=== PATIENT | male | born 1940 | race Caucasian/White ===

== ENCOUNTER 2016-12-10 11:16 | Observation (INO) | payer OTHER ==
--- NOTE | 2016-12-10 12:22 | EDPHY ---
HPI/HX/ROS/PE/MDM Narrative: CHIEF COMPLAINT: Shoulder pain, Knee pain, Back pain. HISTORY OF PRESENT ILLNESS: The patient is a 76-year-old male, brought in by EMS , presenting with posterior left chest pain, left shoulder pain, and right knee pain after falling 5 feet into a window well. patient reports he removed move the cover on his window well next to his house. He then was speaking to his and was distracted and stumbled into the window well, rolling into the window.He did not lose consciousness. He reports Significant pain on the posterior left chest. Worse with inspiration. Worse with movement. Also reports moderate pain to his knee and shoulder. He denies lower extremity weakness or numbness. The patient takes 81mg Aspirin daily. REVIEW OF SYSTEMS: Aside from elements discussed in the HPI, a comprehensive 10-point review of systems was reviewed and is negative. PAST MEDICAL HISTORY: Asthma, on supplemental O2 at night. SOCIAL HISTORY: , lives with at home. VITAL SIGNS: Reviewed by me GENERAL: Well-developed, well-nourished, Reports pain with inspiration. HEENT: Small abrasion to the top of head. Eyes: No icterus, no injection. Mouth: moist mucous membranes. No erythema or lesions. Neck: supple with no adenopathy. LUNGS: BS diminished throughout. Crepitus is noted over the left posterior lower chest. No wheezes, rhonchi or rales. CARDIAC: Regular rate and rhythm, no rubs, murmurs or gallops. ABDOMEN: Soft, nontender, nondistended, bowel sounds normal. BACK: Abrasion across lower chest posteriorly with crepitus. Bruising and tenderness over lower ribs. Large ecchymosis and hematoma over lower left ribs / left flank area. EXTREMITIES: Right knee: Abrasion over patella. No deformity, good range of motion, palpable tenderness along the medial and lateral joint line, moderate swelling. No tibial plateau tenderness. Abrasion to left humerus. Pain with ROM at left shoulder, no tenderness to palpation. No obvious deformity. NEURO: Alert and oriented, grossly nonfocal. SKIN: Warm and dry, no rash. PSYCHIATRIC: Normal mentation, no agitation. Portions of this note were transcribed by a medical office administrator. I personally performed a history, physical exam, medical decision making, and confirmed accuracy of information the transcribed note. ED Course: Patient presents with shoulder pain, knee pain, and back pain after falling 5 feet into a window well. X-ray imaging ordered. Patient received IV Dilaudid for pain. After receiving the medication the patient became diaphoretic , nauseous, pale, and his pressure decreased to 80s systolically. At that time a fast exam was performed: Limited abdominal ultrasound for blunt abdominal trauma. 1) The right upper quadrant was visualized and was found to be negative for intraperitoneal fluid. Large right renal cyst is noted. 2) The left upper quadrant was visualized and found to be negative for intraperitoneal fluid. Limited pelvic ultrasound was conducted for abdominal trauma. The bladder was visualized and did not reveal an anechoic area outside of the adjacent urinary bladder. Bladder was distended with urine. The study was felt to be negative for free intraperitoneal fluid. The procedure was performed by myself, Dr. Bunn. Shoulder x-ray is negative for fracture. Knee x-ray is negative for acute findings. Lab work is otherwise unremarkable. I discussed chest CT with the radiologist. Patient has multiple rib fractures. No pneumothorax. Manubrium appears ratty. There is a subsequent renal cyst found that is greater than 8mm. I discussed the CT findings with the patient and his family. Patient will be admitted to the hospital for ongoing pain control as well as pulmonary support. He was hypoxic on arrival and required 4 L O2 by nasal cannula on initial evaluation. Patient is quite sensitive to narcotic medications. He received Toradol. Patient's course discussed with Dr. Timur Leigh. Patient be admitted to [facility] for ongoing evaluation. MDM: Differential diagnosis for this patient's fall was considered including but not limited to intracranial injury, spinal injury, solid organ injury, pulmonary injury, rib fractures, fractures, contusion, abrasion, intra-abdominal hemorrhage. - Data Points Imaging Results: Imaging Impressions Abdomen CT 12/10/16 12:27 Impression: 1. Nondisplaced posterior left ninth rib fracture with comminuted mildly displaced posterior left tenth and eleventh rib fractures. 2. Small left pleural effusion with basilar groundglass opacities, left greater the right, possibly related to contusion, atelectasis, or less likely asymmetric pulmonary edema. 3. Nonobstructing nephrolithiasis with multiple bladder calcifications. 4. Manubrial lucencies, of uncertain clinical significance. These can be seen with metastasis or myeloma, but are nonspecific. 5. Additional findings as above. Findings discussed with Dr. Riana Bunn, on December 10, [address] 12/10/16 12:27 Impression: 1. Nondisplaced posterior left ninth rib fracture with comminuted mildly displaced posterior left tenth and eleventh rib fractures. 2. Small left pleural effusion with basilar groundglass opacities, left greater the right, possibly related to contusion, atelectasis, or less likely asymmetric pulmonary edema. 3. Nonobstructing nephrolithiasis with multiple bladder calcifications. 4. Manubrial lucencies, of uncertain clinical significance. These can be seen with metastasis or myeloma, but are nonspecific. 5. Additional findings as above. Findings discussed with Dr. Riana Bunn, on December 10, 2016 at [address] 12/10/16 12:27 Impression: 1. No acute intracranial findings. 2. Diffuse cerebral atrophy with periventricular and subcortical low attenuation consistent with chronic microvascular ischemic gliosis. Findings discussed with Dr. Riana Bunn, on December 10, 2016 at 1422 hours. Knee X-Ray 12/10/16 12:28 Impression: 1. No definite acute osseous findings. 2. Joint effusion with probable loose bodies. 3. Severe medial patellofemoral osteoarthritis.. Shoulder X-Ray 12/10/16 12:28 Impression: Degenerative change with no acute findings. Imaging: Discussed imaging studies w/ call center receptionist Radiologist, I viewed and interpreted images myself Laboratory Results: Laboratory Results 12/10/16 12:40 12/10/16 12:40 12/10/16 12/10/16 12/10/16 13:08 12:40 12:40 WBC 8.38 10^3/uL 10^3/uL (3.80-9.50) RBC 4.42 10^6/uL 10^6/uL (4.40-6.38) Hgb 14.6 g/dL g/dL (13.7-17.5) POC Hgb 12.9 gm/dL L gm/dL (13.7-17.5) Hct 42.3 % % (40.0-51.0) POC Hct 38 % L % (40-51) MCV 95.7 fL fL (81.5-99.8) MCH 33.0 pg pg (27.9-34.1) MCHC 34.5 g/dL g/dL (32.4-36.7) RDW 14.9 % % (11.5-15.2) Plt Count 113 10^3/uL L 10^3/uL (150-400) MPV 10.9 fL fL (8.7-11.7) Neut % (Auto) 78.7 % H % (39.3-74.2) Lymph % (Auto) 11.1 % L % (15.0-45.0) [place] % (Auto) 8.1 % % (4.5-13.0) Eos % (Auto) 1.0 % % (0.6-7.6) Baso % (Auto) 0.5 % % (0.3-1.7) Nucleat RBC Rel Count 0.0 % % (0.0-0.2) Absolute Neuts (auto) 6.60 10^3/uL H 10^3/uL (1.70-6.50) Absolute Lymphs (auto) 0.93 10^3/uL L 10^3/uL (1.00-3.00) Absolute Monos (auto) 0.68 10^3/uL 10^3/uL (0.30-0.80) Absolute Eos (auto) 0.08 10^3/uL 10^3/uL (0.03-0.40) Absolute Basos (auto) 0.04 10^3/uL 10^3/uL (0.02-0.10) Absolute Nucleated RBC 0.00 10^3/uL 10^3/uL (0-0.01) Immature Gran % 0.6 % % (0.0-1.1) Immature Gran # 0.05 10^3/uL 10^3/uL (0.00-0.10) POC Sodium 142 mEq/L mEq/L (134-144) Sodium 140 mEq/L mEq/L (134-144) POC Potassium 4.3 mEq/L mEq/L (3.3-5.0) Potassium 4.6 mEq/L mEq/L (3.5-5.2) POC Chloride 108 mEq/L mEq/L (97-110) Chloride 107 mEq/L mEq/L (97-110) Carbon Dioxide 24 mEq/l mEq/l (22-31) Anion Gap 9 mEq/L mEq/L (8-16) POC BUN 26 mg/dL H mg/dL (7-23) BUN 26 mg/dL H mg/dL (7-23) Creatinine 1.2 mg/dL mg/dL (0.7-1.3) POC Creatinine 1.2 mg/dL mg/dL (0.7-1.3) Estimated GFR 59 Glucose 93 mg/dL mg/dL (70-100) POC Glucose 101 mg/dL H mg/dL (70-100) Calcium 9.2 mg/dL mg/dL (8.5-10.4) Medications Given: Discontinued Medications Hydromorphone HCl (Dilaudid) 1 mg IVP EDNOW ONE Stop: 12/10/16 12:28 Last Admin: 12/10/16 12:43 Dose: 1 mg Sodium Chloride (Ns) 1,000 mls @ 0 mls/hr IV ONCE ONE PRN Reason: Wide Open Stop: 12/10/16 13:11 Last Admin: 12/10/16 13:12 Dose: 1,000 mls Ketorolac Tromethamine (Toradol) 30 mg IVP EDNOW ONE Stop: 12/10/16 14:55 Last Admin: 12/10/16 15:12 Dose: 30 mg Point of Care Test Results: 12/10/16 13:08 POC Sodium 142 POC Potassium 4.3 POC Chloride 108 POC BUN 26 H POC Creatinine 1.2 POC Glucose 101 H General Time Seen by Provider: 12/10/16 12:01 Initial Vital Signs: Initial Vital Signs Temperature (C) 36.6 C 12/10/16 11:20 Heart Rate 93 12/10/16 11:20 Respiratory Rate 14 12/10/16 11:20 Blood Pressure 90/59 L 12/10/16 11:20 O2 Sat (%) 87 L 12/10/16 11:20 O2 Delivery Mode Nasal Cannula O2 (L/minute) 2 Allergies/Adverse Reactions: No Known Allergies Allergy (Unverified 10/15/09 00:23) Home Medications: Medication Instructions Recorded Ambien 10/15/09 Aspirin 81mg 10/15/09 Simvastatin 10/15/09 Xalatan 10/15/09 Departure - Departure Disposition: [facility] Clinical Impression: Abrasion Multiple rib fractures Qualifiers: Encounter type: initial encounter Fracture type: closed Laterality: left Qualified Code(s): S22.42XA - Multiple fractures of ribs, left side, initial encounter for closed fracture Knee sprain Qualifiers: Encounter type: initial encounter Involved ligament of knee: unspecified ligament Laterality: right Qualified Code(s): S83.91XA - Sprain of unspecified site of right knee, initial encounter Condition: Good Report Scribed for: Riana Bunn Report Scribed by: Heidi Ramos Date of Report: 12/10/16 Time of Report: 12:24
[2016-12-10] MEDS ORDERED: HYDROmorphONE/DILAUDID 1 MG/ML SYR IVP ONE (12:27)
[2016-12-10] MEDS ORDERED: IOPAMIDOL (ISOVUE-300) 100 ML BTL ONE (12:55)
[2016-12-10 12:59] LABS: % IMMATURE GRANULYOCYTES 0.6 % (0.0-1.1); ABSOLUTE IMMATURE GRANULOCYTES 0.05 10^3/uL (0.00-0.10); ADD DIFF? NO; ADD MORPH? NO; ADD SCAN? NO; ATYPICAL LYMPHOCYTE FLAG 20 (0-99); FRAGMENT RBC FLAG 0 (0-99); HEMATOCRIT 42.3 % (40.0-51.0); HEMOGLOBIN 14.6 g/dL (13.7-17.5); LEFT SHIFT FLG 0 (0-99); LIPEMIA HEMOLYSIS FLAG 90 (0-99); MEAN CELL HEMOGLOBIN CONCENTR. 34.5 g/dL (32.4-36.7); MEAN CELL VOLUME 95.7 fL (81.5-99.8); MEAN PLATELET VOLUME 10.9 fL (8.7-11.7); PLATELET CLUMPS FLAG 10 (0-99); PLATELET COUNT 113 10^3/uL (150-400); RED BLOOD CELL COUNT 4.42 10^6/uL (4.40-6.38); RED CELL DISTRIBUTION WIDTH 14.9 % (11.5-15.2)
[2016-12-10] MEDS ORDERED: NS 1,000 ML IV ONE (13:10)
[2016-12-10 13:13] LABS: ANION GAP 9 mEq/L (8-16); CALCIUM 9.2 mg/dL (8.5-10.4); CARBON DIOXIDE 24 mEq/l (22-31); CHLORIDE 107 mEq/L (97-110); CREATININE 1.2 mg/dL (0.7-1.3); GLOMERULAR FILTRATION RATE 59; GLUCOSE 93 mg/dL (70-100); POTASSIUM 4.6 mEq/L (3.5-5.2); SODIUM 140 mEq/L (134-144)
[2016-12-10] MEDS ORDERED: KETOROLAC 30 MG/1 ML SDV IVP ONE (14:54)
[2016-12-10] MEDS ORDERED: ONDANSETRON 4 MG/2 ML VIAL IVP PRN (16:23)
--- NOTE | 2016-12-10 16:30 | PDGENHP ---
History and Physical - Chief Complaint Mechanical fall - History of Present Illness This is a 76-year-old gentleman who fell into a window well. The patient denies any loss of consciousness chest pain prior to the problem or syncope. He was working on his home took off the window well to do some repairs and simply forgot that was off. The patient did not want to come in was brought in by his . He is knee and left shoulder pain otherwise no complaints. History Information - Allergies/Home Medication List Allergies/Adverse Reactions: No Known Allergies Allergy (Unverified 10/15/09 00:23) Home Medications: Ambien 10/15/09 [Last Taken Unknown] Aspirin 81mg 10/15/09 [Last Taken Unknown] Simvastatin 10/15/09 [Last Taken Unknown] Xalatan 10/15/09 [Last Taken Unknown] I have personally reviewed and updated: family history, medical history, social history, surgical history - Past Medical History asthma, coronary artery disease (He has several coronary stents), GERD - Surgical History Reports: coronary stent - Family History Positive for: non-pertinent - Social History Smoking Status: Never smoked Review of Systems ROS: 10pt was reviewed & negative except for what was stated in HPI & below Cardiac: Denies: chest pain, irregular heart rate, syncope Respiratory: Reports: other (Several month history of viral pneumonia). Denies : shortness of breath Neurological: Denies: seizure, weakness Physical Exam Temp Pulse Resp BP Pulse Ox 36.7 C 81 16 114/76 98 12/10/16 16:17 12/10/16 16:17 12/10/16 16:17 12/10/16 16:17 12/10/16 16:17 O2 (L/minute) 2 Constitutional: no apparent distress Eyes: PERRL, anicteric sclera, EOMI Ears, Nose, Mouth, Throat: moist mucous membranes, ears appear normal Cardiovascular: regular rate and rhythym, no murmur, rub, or gallop, No JVD Peripheral Pulses: 2+: carotid (R), carotid (L), femoral (R), femoral (L), dorsalis-pedis (R), dorsalis-pedis (L) Respiratory: no rales or rhonchi, clear to auscultation Gastrointestinal: soft, non-tender abdomen, no palpable masses, No hepatosplenomegally, No guarding Genitourinary: No no bladder fullness Skin: warm, normal color, No abrasion, No rash Musculoskeletal: full muscle strength, normal joint ROM Neurologic: AAOx3, sensation intact bilaterally, CN II-XII Intact Psychiatric: interacting appropriately, not anxious, thought process linear Lymph, Heme, Immunologic: no cervical LAD, no supraclavicular LAD Lab Data & Imaging Review 12/10/16 12:40 12/10/16 12:40 WBC 8.38 10^3/uL (3.80-9.50) 12/10/16 12:40 RBC 4.42 10^6/uL (4.40-6.38) 12/10/16 12:40 Hgb 14.6 g/dL (13.7-17.5) 12/10/16 12:40 POC Hgb 12.9 gm/dL (13.7-17.5) L 12/10/16 13:08 Hct 42.3 % (40.0-51.0) 12/10/16 12:40 POC Hct 38 % (40-51) L 12/10/16 13:08 MCV 95.7 fL (81.5-99.8) 12/10/16 12:40 MCH 33.0 pg (27.9-34.1) 12/10/16 12:40 MCHC 34.5 g/dL (32.4-36.7) 12/10/16 12:40 RDW 14.9 % (11.5-15.2) 12/10/16 12:40 Plt Count 113 10^3/uL (150-400) L 12/10/16 12:40 MPV 10.9 fL (8.7-11.7) 12/10/16 12:40 Neut % (Auto) 78.7 % (39.3-74.2) H 12/10/16 12:40 Lymph % (Auto) 11.1 % (15.0-45.0) L 12/10/16 12:40 [place] % (Auto) 8.1 % (4.5-13.0) 12/10/16 12:40 Eos % (Auto) 1.0 % (0.6-7.6) 12/10/16 12:40 Baso % (Auto) 0.5 % (0.3-1.7) 12/10/16 12:40 Nucleat RBC Rel Count 0.0 % (0.0-0.2) 12/10/16 12:40 Absolute Neuts (auto) 6.60 10^3/uL (1.70-6.50) H 12/10/16 12:40 Absolute Lymphs (auto) 0.93 10^3/uL (1.00-3.00) L 12/10/16 12:40 Absolute Monos (auto) 0.68 10^3/uL (0.30-0.80) 12/10/16 12:40 Absolute Eos (auto) 0.08 10^3/uL (0.03-0.40) 12/10/16 12:40 Absolute Basos (auto) 0.04 10^3/uL (0.02-0.10) 12/10/16 12:40 Absolute Nucleated RBC 0.00 10^3/uL (0-0.01) 12/10/16 12:40 Immature Gran % 0.6 % (0.0-1.1) 12/10/16 12:40 Immature Gran # 0.05 10^3/uL (0.00-0.10) 12/10/16 12:40 POC Sodium 142 mEq/L (134-144) 12/10/16 13:08 Sodium 140 mEq/L (134-144) 12/10/16 12:40 POC Potassium 4.3 mEq/L (3.3-5.0) 12/10/16 13:08 Potassium 4.6 mEq/L (3.5-5.2) 12/10/16 12:40 POC Chloride 108 mEq/L (97-110) 12/10/16 13:08 Chloride 107 mEq/L (97-110) 12/10/16 12:40 Carbon Dioxide 24 mEq/l (22-31) 12/10/16 12:40 Anion Gap 9 mEq/L (8-16) 12/10/16 12:40 POC BUN 26 mg/dL (7-23) H 12/10/16 13:08 BUN 26 mg/dL (7-23) H 12/10/16 12:40 Creatinine 1.2 mg/dL (0.7-1.3) 12/10/16 12:40 POC Creatinine 1.2 mg/dL (0.7-1.3) 12/10/16 13:08 Estimated GFR 59 12/10/16 12:40 Glucose 93 mg/dL (70-100) 12/10/16 12:40 POC Glucose 101 mg/dL (70-100) H 12/10/16 13:08 Calcium 9.2 mg/dL (8.5-10.4) 12/10/16 12:40 Imaging Review: Imaging Impressions Abdomen CT 12/10/16 12:27 Impression: 1. Nondisplaced posterior left ninth rib fracture with comminuted mildly displaced posterior left tenth and eleventh rib fractures. 2. Small left pleural effusion with basilar groundglass opacities, left greater the right, possibly related to contusion, atelectasis, or less likely asymmetric pulmonary edema. 3. Nonobstructing nephrolithiasis with multiple bladder calcifications. 4. Manubrial lucencies, of uncertain clinical significance. These can be seen with metastasis or myeloma, but are nonspecific. 5. Additional findings as above. Findings discussed with Dr. Riana Bunn, on December 10, 2016 [address] 12/10/16 12:27 Impression: 1. Nondisplaced posterior left ninth rib fracture with comminuted mildly displaced posterior left tenth and eleventh rib fractures. 2. Small left pleural effusion with basilar groundglass opacities, left greater the right, possibly related to contusion, atelectasis, or less likely asymmetric pulmonary edema. 3. Nonobstructing nephrolithiasis with multiple bladder calcifications. 4. Manubrial lucencies, of uncertain clinical significance. These can be seen with metastasis or myeloma, but are nonspecific. 5. Additional findings as above. Findings discussed with Dr. Riana Bunn, on December 10, 2016 at [address] 12/10/16 12:27 Impression: 1. No acute intracranial findings. 2. Diffuse cerebral atrophy with periventricular and subcortical low attenuation consistent with chronic microvascular ischemic gliosis. Findings discussed with Dr. Riana Bunn, on December 10, 2016 at 1422 hours. Knee X-Ray 12/10/16 12:28 Impression: 1. No definite acute osseous findings. 2. Joint effusion with probable loose bodies. 3. Severe medial patellofemoral osteoarthritis.. Shoulder X-Ray 12/10/16 12:28 Impression: Degenerative change with no acute findings. Visualized and Interpreted imaging results: Yes Assessment & Plan Assessment: Abrasion (Acute) Knee sprain (Acute) Multiple rib fractures (Acute) Plan: Pulmonary toilet Pain control Reconciled medications from home when available. Anticipate discharge in 24-48 hours as long as he does not have any acute changes. Chest x-ray in the morning. All questions addressed.
[2016-12-10 18:17] LABS: COLOR YELLOW; LEUKOCYTE ESTERASE,URINE NEGATIVE (NEGATIVE); NITRITE,URINE NEGATIVE (NEGATIVE)
[2016-12-10 18:22] LABS: RBC,URINE NONE SEEN /hpf (0-3); WBC,URINE NONE SEEN /hpf (0-3)
[2016-12-10] MEDS: HYDROCODONE/APAP 5/325 TAB PO PRN (18:53)
[2016-12-10] MEDS ORDERED: FLUTICASONE NASAL 120 SPRAYS/16 GM MDI NS PRN (20:54)
[2016-12-10] MEDS ORDERED: ATORVASTATIN CALCIUM 40 MG TAB PO SCH (21:00)
[2016-12-10] MEDS ORDERED: METOPROLOL SUCCINATE XR 25 MG TAB PO SCH (21:00)
[2016-12-10] MEDS ORDERED: LATANOPROST 0.005% 2.5 ML OPHT DROPS EACHEYE SCH (21:00)
[2016-12-10] MEDS ORDERED: TIOTROPIUM INHALER 18 MCG/DOSE 5 DOSE/MDI IH SCH (21:00)
[2016-12-10] MEDS: IBUPROFEN 600 MG TAB PO SCH (21:15)
[2016-12-11] MEDS: IBUPROFEN 600 MG TAB PO SCH ×2 (05:17→13:44)
[2016-12-11] MEDS ORDERED: LEVOTHYROXINE 75 MCG TAB PO SCH (06:00)
[2016-12-11] MEDS: HYDROCODONE/APAP 5/325 TAB PO PRN ×2 (08:52→13:44)
[2016-12-11] MEDS ORDERED: FINASTERIDE 5 MG TAB PO SCH (09:00)
[2016-12-11] MEDS ORDERED: NON-FORMULARY NEW DRUG (Omeprazole [Prilosec 20 Mg] 20 MG) PO SCH (09:00)
[2016-12-11] MEDS ORDERED: PANTOPRAZOLE SODIUM 40 MG TAB PO SCH (09:00)
[2016-12-11] MEDS ORDERED: MONTELUKAST SODIUM 10 MG TAB PO SCH (09:00)
[2016-12-11] MEDS ORDERED: ASPIRIN 81 MG CHEWABLE TAB PO SCH (09:00)
--- NOTE | 2016-12-11 09:50 | TRAUMAPN ---
Assessment/Plan: 76-year-old male status post fall with left posterior 538 rib fractures, knee contusion, pulmonary contusion Tertiary exam Neuro: Alert oriented nonfocal, Pain controlled Pulm: On supplemental oxygen, wears 2 L at night always. Will likely need to go home on supplemental oxygen at all times. CV: Hemodynamically stable Abdomen: Soft nondistended nontender, tolerating a regular diet Renal: Voiding Heme: Stable Id: Afebrile Ortho: Rib fracture stable, chest x-ray pending this morning. Dispo: If chest x-ray looks good, will likely discharge home. No new injuries identified Subjective: Doing well, embarrassed as to the cause of his injuries Objective: Vital Signs Temp Pulse Resp BP Pulse Ox 36.4 C 82 18 114/63 94 12/11/16 08:00 12/11/16 08:00 12/11/16 08:00 12/11/16 08:00 12/11/16 08:00 12/10/16 12/11/16 12/12/16 05:59 05:59 05:59 Intake Total 175 Balance 175
--- NOTE | 2016-12-11 12:08 | PDHOMEO2F ---
Home Oxygen Face to Face Home Orders: I certify that a physician or a nurse practitioner or physician's medical receptionist medical assistant has had a [id number] encounter with this patient on the date of this order due to the diagnosis listed, which relates to the primary reason the patient requires home oxygen. Alternative treatments have been tried, or considered, and deemed ineffective. It is anticipated that supplemental oxygen will result in improvement with treatment. Home oxygen qualifying diagnosis: rib fractures, respiratory insufficiency, pulmonary contusion SpO2 on room air (%): 84 Frequency of home oxygen needed: continuous Home oxygen liters per minute: 2 Home oxygen delivery device: nasal cannula Concentrator: Yes E-tanks for mobility and back up: Yes If ordering portable O2, is the patient mobile in the home?: Yes I certify that, based on these findings, the home oxygen is medically necessary for this patient for the following length of time. Length of time home oxygen needed: 1 week
--- NOTE | 2016-12-11 12:13 | PDDCSUM ---
Discharge Summary Discharge Summary: DISCHARGE SUMMARY Date of Admission December 10 Date of Discharge December 11 DISCHARGE DIAGNOSES - left 5 through 8 posterior rib fractures with underlying contusion, no hemopneumothorax - right knee contusion HOSPITAL COURSE The patient was admitted from the ED after presenting status post fall. The above injuries were identified. He was stable throughout his hospitalization and managed on the general medical floor. His pain was well controlled initially an IV narcotics which were transitioned to orals on discharge. Had chest film on the day of discharge which showed no hemopneumothorax but likely increasing consolidation contusion versus atelectasis. He was counseled on aggressive pulmonary toilet and use of his incentive spirometer. He was subsequently discharged home in stable condition on the afternoon of the on 2 L oxygen nasal cannula at all times. DISCHARGE MEDICATIONS - all home medications reconciled in restarted - new medications include ibuprofen scheduled, [place] as needed for pain DISPOSITION Home FOLLOW UP Follow up with his [place] primary care physician next week
[2016-12-11 12:21] VITALS: BP 121/67; TEMP 97.9
[2016-12-11 12:44] VITALS: PULSE 88; RESP 18; O2SAT 84
== END 2016-12-11 13:52 | disposition home or self-care (01) ==
LOC: F3E 16:22
PROVIDERS: ADMIT Surgery; ATTEND Surgery
DX: S22.42XA Multiple fractures of ribs, left side, initial encounter for closed fracture (principal); S80.01XA Contusion of right knee, initial encounter; W17.2XXA Fall into hole, initial encounter
CPT/HCPCS: 70450; 71020; 71260; 73030; 73564; 74177; 97161; 97165; G0378; J1170; J1885; Q9967; 82947-QW; 96374